=== PATIENT | female | born 1970 | race Caucasian/White ===

== ENCOUNTER 2018-03-08 22:00 | Emergency (ER) | payer MEDICAID ==
[2018-03-08 22:21] VITALS: TEMP 98.5
[2018-03-09] MEDS ORDERED: Lidocaine 2% MPF (5 ml) Inj ONE ×2 (00:01→00:03)
--- NOTE | 2018-03-09 01:21 | C.PDOC ---
History Of Present Illness 47 year old female presents to the ED c/o injury to her right great toe. Patient states a chair fell on her right foot. Patient denies other injury, weakness, numbness. Time Seen by Provider: 03/08/18 22:39 Chief Complaint (Nursing): Lower Extremity Problem/Injury History Per: Patient History/Exam Limitations: no limitations Onset/Duration Of Symptoms: Hrs Current Symptoms Are (Timing): Still Present Recent travel outside of the [place]: No Additional History Per: Patient - Ankle/Foot Description Of Injury: Struck Against Object Past Medical History Reviewed: Historical Data, Nursing Documentation, Vital Signs Vital Signs: Last Vital Signs Temp 98.5 F 03/09/18 01:34 Pulse 84 03/09/18 01:34 Resp 16 03/09/18 01:34 BP 121/82 03/09/18 01:34 Pulse Ox 98 03/09/18 01:34 - Medical History PMH: Asthma Surgical History: No Surg Hx Family History: States: Unknown Family Hx - Social History Hx Tobacco Use: Yes Hx Alcohol Use: No Hx Substance Use: No - Immunization History Hx Tetanus Toxoid Vaccination: No Hx Influenza Vaccination: No Hx Pneumococcal Vaccination: No Review Of Systems Musculoskeletal: Positive for: Foot Pain (right) Neurological: Negative for: Weakness, Numbness Physical Exam - Physical Exam Appears: Non-toxic, No Acute Distress Skin: Normal Color, Warm, Dry Head: Atraumatic, Normacephalic Eye(s): bilateral: Normal Inspection Extremity: Normal ROM, Tenderness (right great toe), Capillary Refill (< 2 seconds), No Deformity, No Swelling, Other (laceration to base of right great toe nail with active bleeding) Pulses: Left Dorsalis Pedis: Normal, Right Dorsalis Pedis: Normal Neurological/Psych: Oriented x3, Normal Speech, Normal Motor, Normal Sensation Gait: Other (minimal limp due to pain) ED Course And Treatment O2 Sat by Pulse Oximetry: 97 (ON RA) Pulse Ox Interpretation: Normal - Other Rad Right foot X-Ray: Interpreted by Me, Viewed By Me Interpretation: Fx 1st distal phalanx Progress Note: Plan: - Augmentin 1 tab PO. - Motrin 600 mg PO. - Right foot X -Ray. Bacitracin oint applied, Toe dressed and placed inortho shoe. Pt will follwo up with podiatry Reassessment Condition: Improved Laceration - Laceration Repair Right toe Wound Length (In cm): 1 Description Of Wound: Linear Anesthesia: Lidocaine 2% Wound Examination: Irrigated With Saline Wound Closure: Suture (x 1) Suture Technique And Material Used: Nylon (3.0) Wound Complexity: Simple (Suture placed to maintain nailbed integrity) Procedure: Blank - Time Out Time Out: Site verified - Procedure Procedure:: trepination - Consent obtained: Consent obtained: Verbal - Performed by: Performed by:: Mid-level provider - Indications Indications(s):: subungal hematoma - Anesthetic Technique Anesthetic Technique: Regional block - Topical: Local/Regional Anesthetic:: Lidocaine 2% - Location Location: Right Toe:: 1 (using a cautery , hematoma was drained from right great toe) - Result Result: Successful - Complications Complications:: Bleeding, Pain - Patient Tolerated Procedure Patient Tolerated Procedure:: Well Disposition Counseled Patient/Family Regarding: Studies Performed, Diagnosis, Need For Followup, Rx Given - Disposition Referrals: Podiatry Clinic [Outside] Disposition: HOME/ ROUTINE Disposition Time: 01:18 Condition: STABLE Additional Instructions: Please follow up with PMD Take medications as prescribed Follow up with podiatry clinic Leg elevation- Apply Ice to area Return to ER if worse Prescriptions: Amoxicillin/Clavulanate [Augmentin 875 MG-125 MG] 1 tab PO BID #10 tab Ibuprofen [Motrin] 600 mg PO Q6H #20 tab Instructions: Contusion (DC), Toe Fracture (DC) Forms: [email or web address] (Tanzanian) - Clinical Impression Clinical Impression: Open fracture of toe of right foot, Subungual hematoma of great toe of right foot - PA / [employer] MEMBER / Resident Statement MD/DO has reviewed & agrees with the documentation as recorded. - Scribe Statement The provider has reviewed the documentation as recorded by the Scribe Matteo Abreu All medical record entries made by the Scribe were at my direction and personally dictated by me. I have reviewed the chart and agree that the record accurately reflects my personal performance of the history, physical exam, medical decision making, and the department course for this patient. I have also personally directed, reviewed, and agree with the discharge instructions and disposition.
[2018-03-09] MEDS ORDERED: Amoxicillin-Clav 875-125 mg Tab PO STA (01:26)
[2018-03-09] MEDS ORDERED: Bacitracin 500 Units/gm Oint Foilpak UD ONE (01:28)
[2018-03-09] MEDS ORDERED: Amoxicillin-Clav 875-125 mg Tab PO ONE (01:30)
[2018-03-09 01:36] VITALS: BP 121/82; PULSE 84; RESP 16
--- NOTE | 2018-03-09 08:59 | RAD ---
Right foot 1st digit three views History: Crush injury. Comparison: None available. Findings: Fracture deformity of the distal tuft of the 1st distal phalanx. Moderate hallux valgus deformity. Remainder of the visualized osseous structures appear grossly preserved. Type 1 os navicularis variant. Impression: Fracture deformity of the distal tuft of the 1st distal phalanx. Moderate hallux valgus deformity. Remainder of the visualized osseous structures appear grossly preserved. Type 1 os navicularis variant.
[2018-03-10 02:01] VITALS: O2SAT 97
== END 2018-03-09 01:35 | disposition home or self-care (01) ==
LOC: C.ER 22:00
DX: S92.421B Displaced fracture of distal phalanx of right great toe, initial encounter for open fracture (principal); S90.111A Contusion of right great toe without damage to nail, initial encounter; W22.8XXA Striking against or struck by other objects, initial encounter; Y92.9 Unspecified place or not applicable